=== PATIENT | female | born 1990 | race Caucasian/White ===

== ENCOUNTER 2017-10-02 02:03 | Inpatient (IN) | payer BC, OTHER ==
[2017-10-02] VITALS (14 sets, daily range): BP systolic 94–147; BP diastolic 52–74
[~2017-10-02 02:03] MED LIST: BCP; CAMILA0.35 MG PO; IBUPROFEN800 MG PO; K-DUR20 MEQ PO; ZOFRAN4 MG PO
[2017-10-02 03:02] LABS: EOSINOPHIL (%) 0.6 % (0-5); EOSINOPHIL COUNT 0.1 K/uL (0-0.3); HEMATOCRIT 35.6 % (36.0-46.0); IMMATURE GRANULOCYTE (%) 0.6 % (0.0-0.7); IMMATURE GRANULOCYTE COUNT 0.1 K/uL; INSTRUMENT ABS NEUTROPHIL CT 6.7 K/uL; LYMPHOCYTE COUNT 1.7 K/uL (1.0-2.8); MCH 29.8 PG (29.0-34.0); MCHC 33.7 G/DL (30.0-36.0); MCV 88.3 FL (83-99); MEAN PLAT.VOLUME 10.5 uM^3 (9.5-12.4); MONOCYTE (%) 5.3 % (3-12); MONOCYTE COUNT 0.5 K/uL (0-0.8); NEUTROPHIL (%) 74.7 % (45-76); NEUTROPHIL COUNT 6.7 K/uL (1.8-6.4); PLATELET COUNT 209 K/uL (156-360); RBC DIS.WIDTH-CV 13.5 % (11.8-14.6); RBC DIS.WIDTH-SD 44.4 % (39-53); RED BLOOD COUNT 4.03 M/uL (3.80-5.20); WHITE BLOOD COUNT 8.9 K/uL (4.1-10.2)
[2017-10-02] MEDS ORDERED: PRENATAL TABLE1 EAC3 PO (05:26)
[2017-10-03 09:34] LABS: EOSINOPHIL (%) 0.6 % (0-5); EOSINOPHIL COUNT 0.1 K/uL (0-0.3); HEMATOCRIT 32.7 % (36.0-46.0); IMMATURE GRANULOCYTE (%) 0.5 % (0.0-0.7); IMMATURE GRANULOCYTE COUNT 0.1 K/uL; INSTRUMENT ABS NEUTROPHIL CT 8.2 K/uL; LYMPHOCYTE COUNT 1.4 K/uL (1.0-2.8); MCH 30.1 PG (29.0-34.0); MCV 91.1 FL (83-99); MEAN PLAT.VOLUME 10.2 uM^3 (9.5-12.4); MONOCYTE COUNT 0.4 K/uL (0-0.8); NEUTROPHIL (%) 81.1 % (45-76); NEUTROPHIL COUNT 8.2 K/uL (1.8-6.4); PLATELET COUNT 222 K/uL (156-360); RBC DIS.WIDTH-CV 14.2 % (11.8-14.6); RBC DIS.WIDTH-SD 46.6 % (39-53); RED BLOOD COUNT 3.59 M/uL (3.80-5.20); WHITE BLOOD COUNT 10.1 K/uL (4.1-10.2)
[2017-10-03] MEDS ORDERED: IBUPROFEN800 MG PO (11:16)
== END 2017-10-03 12:49 | disposition home or self-care (01) | DRG 775 ==
LOC: LDRP-OP 02:03 → 2WEST 02:04 → LDRP-OP 11-10 09:05
PROVIDERS: Advanced Practice Midwife
DX: O70.0 First degree perineal laceration during delivery (principal); O69.1XX0 Labor and delivery complicated by cord around neck, with compression, not applicable or unspecified; Z3A.39 39 weeks gestation of pregnancy; Z37.0 Single live birth
CPT/HCPCS: 85025; J0595

== ENCOUNTER 2017-11-23 15:02 | Emergency (ER) | payer BC, OTHER ==
[~2017-11-23] VITALS: Ht 175.3 cm; Wt 77.6 kg
[~2017-11-23 15:02] MED LIST changes: +PRENATAL TABLE1 EAC3 PO
[2017-11-23 17:43] LABS: BASOPHIL (%) 0.3 % (0-1); EOSINOPHIL (%) 0.3 % (0-5); HEMATOCRIT 35.8 % (36.0-46.0); HEMOGLOBIN 11.8 G/DL (11.9-15.5); IMMATURE GRANULOCYTE (%) 0.2 % (0.0-0.7); LYMPHOCYTE (%) 12.2 % (15-42); LYMPHOCYTE COUNT 1.1 K/uL (1.0-2.8); MCH 28.8 PG (29.0-34.0); MCV 87.3 FL (83-99); MONOCYTE (%) 4.3 % (3-12); MONOCYTE COUNT 0.4 K/uL (0-0.8); NEUTROPHIL (%) 82.7 % (45-76); NEUTROPHIL COUNT 7.7 K/uL (1.8-6.4); PLATELET COUNT 266 K/uL (156-360); RBC DIS.WIDTH-CV 12.5 % (11.8-14.6); RBC DIS.WIDTH-SD 40.2 % (39-53); WHITE BLOOD COUNT 9.4 K/uL (4.1-10.2)
[2017-11-23 17:53] LABS: ALBUMIN 4.2 g/dL (3.2-4.8); CHLORIDE 107 mEq/L (99-109); POTASSIUM 3.9 mEq/L (3.7-5.4); SODIUM 139 mEq/L (136-147)
[2017-11-23 17:55] LABS: GLUCOSE 85 mg/dL (70-99); TOTAL PROTEIN 7.4 g/dL (6.4-8.3)
[2017-11-23 17:57] LABS: TOTAL BILIRUBIN 0.3 mg/dL (0.0-1.0)
[2017-11-23 17:59] LABS: ALKALINE PHOSPHATASE 82 IU/L (3-129); CREATININE 0.8 mg/dL (0.6-1.3); GFR ESTIMATE (CALCULATED) > 59 mL/min/
[2017-11-23 18:00] LABS: UREA NITROGEN (BUN) 14 mg/dL (9-23)
[2017-11-23 19:01] LABS: ALT (GPT) 24 IU/L (3-49); AST (GOT) 20 IU/L (2-34)
[2017-11-23 19:08] LABS: QUANTITATIVE HCG < 4.0 MIU/ML
[2017-11-23] MEDS ORDERED: KEFLEX500 MG PO (19:26)
[2017-11-23 20:00] VITALS: BP 123/68
== END 2017-11-23 20:10 | disposition home or self-care (01) ==
LOC: EME 15:02
PROVIDERS: Emergency Medicine
DX: N61.1 Abscess of the breast and nipple (principal); Z88.8 Allergy status to other drugs, medicaments and biological substances
CPT/HCPCS: 80053; 83605; 84702; 85025; 99281; 99284; J0295; J7030; J7050

== ENCOUNTER 2018-06-03 18:39 | Emergency (ER) | payer OTHER ==
[~2018-06-03] VITALS: Ht 177.8 cm; Wt 73.9 kg
[~2018-06-03 18:39] MED LIST changes: +KEFLEX500 MG PO
[2018-06-03 20:01] LABS: HEMATOCRIT 37.6 % (36.0-46.0); HEMOGLOBIN 12.3 G/DL (11.9-15.5); MCH 28.7 PG (29.0-34.0); MCHC 32.7 G/DL (30.0-36.0); MCV 87.9 FL (83-99); PLATELET COUNT 256 K/uL (156-360); RBC DIS.WIDTH-CV 12.9 % (11.8-14.6); RBC DIS.WIDTH-SD 41.2 % (39-53); RED BLOOD COUNT 4.28 M/uL (3.80-5.20); WHITE BLOOD COUNT 9.6 K/uL (4.1-10.2)
[2018-06-03 20:11] LABS: D-DIMER ELISA < 150.00 ng/mLDDU (<230)
[2018-06-03 20:23] LABS: CHLORIDE 106 mEq/L (99-109); POTASSIUM 3.6 mEq/L (3.7-5.4); SODIUM 140 mEq/L (136-147); TROP-I INTERPRETATION NEGATIVE; TROPONIN-I < 0.01 ng/mL (0.0-0.30)
[2018-06-03 20:25] LABS: GLUCOSE 103 mg/dL (70-99)
[2018-06-03 20:29] LABS: CREATININE 0.8 mg/dL (0.6-1.3); GFR ESTIMATE (CALCULATED) > 59 mL/min/
[2018-06-03 20:30] LABS: UREA NITROGEN (BUN) 12 mg/dL (9-23)
[2018-06-03 20:37] LABS: QUANTITATIVE HCG < 4.0 MIU/ML
[2018-06-03] MEDS ORDERED: ZANTAC150 MG PO (21:15)
[2018-06-03 21:45] VITALS: BP 102/70
== END 2018-06-03 21:45 | disposition home or self-care (01) ==
LOC: EME 18:39
PROVIDERS: Emergency Medicine
DX: R07.9 Chest pain, unspecified (principal); Z88.8 Allergy status to other drugs, medicaments and biological substances
CPT/HCPCS: 71046; 80048; 84484; 84702; 85027; 85379; 93005; 99281; 99284